=== PATIENT | female | born 1985 | race Caucasian/White ===

== ENCOUNTER 2017-11-12 20:23 | Emergency (ER) | payer MEDICAID ==
[~2017-11-12] VITALS: Ht 175.3 cm; Wt 120.0 kg
[~2017-11-12 20:23] MED LIST: HYDR-3533 PO; NAPR500 PO; PENI250T59 PO; PERC5TAB12 PO
[2017-11-12 20:57] VITALS: PULSE 84; RESP 18; TEMP 98.5; O2SAT 98
[2017-11-12] MEDS ORDERED: PENICILLIN V POTASSIUM 500 MG TAB PO ONE (21:00)
[2017-11-12] MEDS ORDERED: DEXAMETHASONE 4 MG TAB PO ONE (21:00)
[2017-11-12] MEDS ORDERED: PENI500T PO (21:02)
[2017-11-12] MEDS ORDERED: NAPR500 PO (21:02)
--- NOTE | 2017-11-12 21:02 | PD ---
HPI . Gum pain Chief Complaint: Pain gums and teeth Time Seen by Provider: 20:55 Travel History International Travel<30 days: No Contact w/Intl Traveler<30days: No History of Present Illness HPI Is a 32-year-old woman who presents emerged from complaining of pain and tenderness in her left lower jaw. She had a abscess there that she felt like pop several days ago. Now she has more tenderness and pain in that same area. No drainage now. She did not want to see a dentist because she is afraid they will pull her teeth. She has history of bipolar disorder and ADHD. She otherwise had been feeling generally well. No other complaints. History Past Medical History Narrative Medical ADHD Bipolar disorder Social History Alcohol Use: No Tobacco Use: No (tobacco free one year and one month) Allergies-Medications (Allergen,Severity, Reaction): Coded Allergies: No Known Allergies (Unverified , 04/12/16) Reported Meds & Prescriptions Reported Meds & Active Scripts Active Lortab (Hydrocodone-Acetaminophen) 5-325 Mg Tab 1 Tab PO Q6H PRN Percocet (Oxycodone-Acetaminophen) 5-325 mg Tab 1-2 Tab PO Q6H PRN Reported Penicillin Vk (Penicillin V Potassium) 250 Mg Tab 250 Mg PO Q6H Naprosyn (Naproxen) 500 Mg Tab 500 Mg PO BID Review of Systems Except as stated in HPI: all other systems reviewed are Neg Physical Exam Narrative GENERAL: 32-year-old woman, no acute distress. SKIN: Focused skin assessment warm/dry. HEAD: Atraumatic. Normocephalic. EYES: Pupils equal and round. No scleral icterus. No injection or drainage. ENT: No nasal bleeding or discharge. Mucous membranes pink and moist. Left lower jaw, on the left side on the buccal side, there is little bit of tenderness over the gums on the first molar. There is no palpable fluctuance. No drainage. Minimal tenderness to the tooth itself. NECK: Trachea midline. No JVD. CARDIOVASCULAR: Warm and well perfused. RESPIRATORY: Normal rate and effort. MDM Medical Decision Making Medical Screen Exam Complete: Yes Emergency Medical Condition: Yes Differential Diagnosis Apical abscess, dentalgia, osteomyelitis, other Narrative Course Medical decision making 29-year-old woman presents emerged from with dental pain. Likely apical abscess. Cannot feel any discrete fluctuance. Recommend antibiotics, and outpatient follow-up with dentistry. Diagnosis Primary Impression: Apical alveolar abscess Additional Instructions: Take antibiotics as prescribed. Take naproxen as needed for pain. Follow-up with the dentist as planned. Return the emergency department for any worsening pain swelling redness or any other new or worsening symptoms. Med/Other Pt SpecificInfo: Prescription(s) given Scripts Penicillin V Potassium (Penicillin V Potassium) 500 Mg Tab 500 MG PO Q8H for Infection for 10 Days, #30 TAB 0 Refills Prov: Nelson Cristobal MD 11/12/17 Naproxen (Naprosyn) 500 Mg Tab 500 MG PO BID, #60 TAB 0 Refills Prov: Nelson Cristobal MD 11/12/17 Disposition: 01 DISCHARGE HOME Condition: Stable Nelson Cristobal MD Nov 12, 2017 21:02
== END 2017-11-12 21:32 | disposition home or self-care (01) ==
LOC: NEPD 20:23
DX: K04.7 Periapical abscess without sinus (principal); F90.9 Attention-deficit hyperactivity disorder, unspecified type; F31.9 Bipolar disorder, unspecified; Z79.899 Other long term (current) drug therapy
CPT/HCPCS: 99283; J8540